=== PATIENT | female | born 1975 | race Caucasian/White ===

== ENCOUNTER 2016-11-10 11:09 | Emergency (ER) | payer OTHER ==
[~2016-11-10] VITALS: Ht 162.6 cm; Wt 82.7 kg
[2016-11-10 11:49] LABS: HEMATOCRIT 39.6 % (36.0-46.0); MCH 27.5 PG (29.0-34.0); MCHC 32.3 G/DL (30.0-36.0); MCV 85.2 FL (83-99); MEAN PLAT.VOLUME 10.6 uM^3 (9.5-12.4); PLATELET COUNT 260 K/uL (156-360); RBC DIS.WIDTH-CV 12.5 % (11.8-14.6); RBC DIS.WIDTH-SD 38.4 % (39-53); RED BLOOD COUNT 4.65 M/uL (3.80-5.20); WHITE BLOOD COUNT 6.7 K/uL (4.1-10.2)
[2016-11-10 12:15] LABS: CHLORIDE 112 mEq/L (99-109); POTASSIUM 3.8 mEq/L (3.7-5.4); SODIUM 141 mEq/L (136-147)
[2016-11-10 12:16] LABS: GLUCOSE 86 mg/dL (70-99)
[2016-11-10 12:18] LABS: ANION GAP 9 MEQ/L (2-14)
[2016-11-10 12:20] LABS: GFR ESTIMATE (CALCULATED) > 59 mL/min/
[2016-11-10 12:21] LABS: UREA NITROGEN (BUN) 11 mg/dL (9-23)
[2016-11-10 12:23] LABS: CREATINE KINASE 147 IU/L (1-294)
[2016-11-10] MEDS ORDERED: NORCO 7.5/321 TABLET PO (13:19)
[2016-11-10] MEDS ORDERED: MOTRIN800 MG PO (13:19)
[2016-11-10 13:31] VITALS: BP 133/85
== END 2016-11-10 13:49 | disposition home or self-care (01) ==
LOC: EME 11:09
PROVIDERS: Physician Assistant
DX: S86.812A Strain of other muscle(s) and tendon(s) at lower leg level, left leg, initial encounter (principal); R60.0 Localized edema; Z87.891 Personal history of nicotine dependence
CPT/HCPCS: 80048; 82550; 85027; 93971; 99281; 99284